=== PATIENT | female | born 1990 | race African-American/Black ===

== ENCOUNTER → 2018-01-22 | Emergency (ER) | payer OTHER ==
[~2018-01-22] VITALS: Ht 162.6 cm; Wt 78.0 kg
== END | disposition home or self-care (01) ==
LOC: ER 09:03
DX: O20.8 Other hemorrhage in early pregnancy (principal); Z34.01 Encounter for supervision of normal first pregnancy, first trimester

== ENCOUNTER 2018-07-10 15:15 | Inpatient (IN) | payer OTHER ==
[~2018-07-10] VITALS: Ht 157.5 cm; Wt 1.8 kg
[2018-07-10] MEDS ORDERED: PRENATABS RX T1 EACH PO (16:16)
== END 2018-07-23 15:50 | DRG 765 ==
LOC: OBS/DEL 15:15 → LDR 07-11 17:51 → OB/GYN 07-11 17:51
PROVIDERS: Obstetrics & Gynecology
PROC: 4A1HXCZ Monitoring of Products of Conception, Cardiac Rate, External Approach (ICD-10-PCS; 2018-07-11)
PROC: BY4FZZZ Ultrasonography of Third Trimester, Single Fetus (ICD-10-PCS; 2018-07-12)
PROC: BY4FZZZ Ultrasonography of Third Trimester, Single Fetus (ICD-10-PCS; 2018-07-12)
PROC: BY4FZZZ Ultrasonography of Third Trimester, Single Fetus (ICD-10-PCS; 2018-07-13)
PROC: 10D00Z1 Extraction of Products of Conception, Low, Open Approach (ICD-10-PCS; principal; 2018-07-16 19:00)
DX: O14.13 Severe pre-eclampsia, third trimester (principal); O60.14X0 Preterm labor third trimester with preterm delivery third trimester, not applicable or unspecified; O13.3 Gestational [pregnancy-induced] hypertension without significant proteinuria, third trimester; Z3A.32 32 weeks gestation of pregnancy; Z37.0 Single live birth